=== PATIENT | male | born 1985 | race Two or more races ===

== ENCOUNTER 2018-09-24 11:02 | Emergency (ER) | payer MEDICAID ==
[~2018-09-24] VITALS: Ht 188 cm; Wt 102.1 kg
[2018-09-24 11:21] VITALS: BP 173/96
[2018-09-24] MEDS ORDERED: LIDOCAINE 1% HCL (LOCAL ANESTH.) INJ 20ML MDV IJ ONE (11:45)
[2018-09-24] MEDS ORDERED: LIDOCAINE 1% HCL (LOCAL ANESTH.) INJ 20ML MDV ONE (11:47)
== END 2018-09-24 12:14 | disposition home or self-care (01) ==
LOC: ER 11:02
DX: S61.213A Laceration without foreign body of left middle finger without damage to nail, initial encounter (principal); F17.210 Nicotine dependence, cigarettes, uncomplicated; W26.8XXA Contact with other sharp object(s), not elsewhere classified, initial encounter; Y93.89 Activity, other specified; Y92.89 Other specified places as the place of occurrence of the external cause; Y99.9 Unspecified external cause status
CPT/HCPCS: 12002; 99283; J2001

== ENCOUNTER 2019-01-07 08:38 | Emergency (ER) | payer MEDICAID ==
[~2019-01-07] VITALS: Ht 188 cm; Wt 103.4 kg
[2019-01-07 09:27] VITALS: BP 150/93
[2019-01-07] MEDS ORDERED: IBUPROFEN 800 MG TAB PO ONE (10:15)
== END 2019-01-07 10:35 | disposition home or self-care (01) ==
LOC: ER 08:38
DX: S52.611A Displaced fracture of right ulna styloid process, initial encounter for closed fracture (principal); S62.307A Unspecified fracture of fifth metacarpal bone, left hand, initial encounter for closed fracture; J45.909 Unspecified asthma, uncomplicated; Y04.0XXA Assault by unarmed brawl or fight, initial encounter; Y93.89 Activity, other specified; Y92.89 Other specified places as the place of occurrence of the external cause; Y99.8 Other external cause status
CPT/HCPCS: 29125; 73110; 73130

== ENCOUNTER 2021-03-18 12:47 | Emergency (ER) | payer MEDICAID ==
[~2021-03-18] VITALS: Ht 188 cm; Wt 99.8 kg
[2021-03-18 14:15] VITALS: BP 159/99
[2021-03-18] MEDS ORDERED: TETANUS-DIPTH-ACEL PERTUSSIS 0.5ML SYR Tdap IM ONE (14:15)
[2021-03-18] MEDS ORDERED: CEPH500C PO (14:26)
== END 2021-03-18 15:10 | disposition home or self-care (01) ==
LOC: ER 12:47
DX: S61.011A Laceration without foreign body of right thumb without damage to nail, initial encounter (principal); J45.909 Unspecified asthma, uncomplicated; W18.39XA Other fall on same level, initial encounter; Y93.01 Activity, walking, marching and hiking; Y92.89 Other specified places as the place of occurrence of the external cause; Y99.8 Other external cause status
CPT/HCPCS: 73140; 90471; 90715